=== PATIENT | female | born 1975 | race Caucasian/White ===

== ENCOUNTER 2024-02-12 12:26 | Inpatient (IN) ==
[2024-02-12 13:38] LABS: ABS Eosinophils 0.1 10^3/uL (0.0-0.5); ABS Lymphocytes 0.9 10^3/uL (1.0-4.8); ABS Monocytes 0.6 10^3/uL (0.0-0.9); ABS Neutrophils 6.5 10^3/uL (1.5-7.6); Eosinophil % 1.1 %; Hematocrit 38.3 % (35-45); Hemoglobin 12.8 g/dL (11.5-14.3); Lymphocyte % 10.8 %; Mean Corpuscular Hemoglobin 29.7 pg (27-33); Mean Corpuscular Hgb Conc 33.5 g/dL (31-36); Mean Corpuscular Volume 88.8 fL (80-97); Mean Platelet Volume 9.7 fL (7.5-11.2); Platelet Count 206 10^3/uL (150-450); Red Blood Count 4.31 10^6/uL (3.63-4.92); White Blood Count 8.1 10^3/uL (3.8-11.8)
[2024-02-12 13:59] LABS: Urine Appearance Clear; Urine Bilirubin Negative (Negative); Urine Blood Negative (Negative); Urine Color Yellow; Urine Glucose Negative (Negative); Urine Ketones 1+ (Negative); Urine Nitrite Negative (Negative); Urine Protein Trace (Negative); Urine Urobilinogen Negative (Negative)
[2024-02-12 14:03] LABS: Urine Benzodiazepine Screen None Detected (None Detect); Urine Cannabinoids Screen Presumptive Positive (None Detect); Urine Opiates Screen None Detected (None Detect)
[2024-02-12 14:04] LABS: Albumin 4.2 g/dL (3.2-5.2); Albumin/Globulin Ratio 1.8 (1-3); Calcium 9.2 mg/dL (8.6-10.3); Creatinine, Serum 0.51 mg/dL (0.51-0.95); Globulin 2.4 g/dL (2-4); Total Bilirubin 0.5 mg/dL (0.2-1.0); Total Protein 6.6 g/dL (6.4-8.9); eGFR CKD-EPI 115.8 (>60)
[2024-02-12] MEDS ORDERED: Al Hydrox/Mg Hydrox/Simet LIQ 30 ML UDC PO PRN (14:31)
[2024-02-13 08:11] LABS: HDL Cholesterol 61.1 mg/dL
[2024-02-13] MEDS ORDERED: OLANZapine 5 mg TAB *ODT PO PRN (10:39)
[2024-02-14] MEDS: Multivitamins/Minerals TAB PO SCH (08:26)
[2024-02-14] MEDS: Conjugated Estrogens 0.3mg TAB PO SCH (10:54)
[2024-02-15] MEDS: CMCS:Estradiol 1 mg TAB (NF) PO SCH (09:06)
[2024-02-15] MEDS: PROGESTERONE PO SCH (09:07)
[2024-02-17 09:21] VITALS: BP 98/67
== END 2024-02-17 15:00 | disposition home or self-care (01) | DRG 753 ==
LOC: ED 12:26 → EDHOLD 14:31 → BSU 15:49
PROVIDERS: ADMIT Psychiatry & Neurology Psychiatry; ATTEND Student in an Organized Health Care Education/Training Program